=== PATIENT | female | born 1970 | race Caucasian/White ===

== ENCOUNTER 2019-07-19 02:40 | Emergency (ER) | payer OTHER ==
[~2019-07-19] VITALS: Ht 154.9 cm; Wt 88.0 kg
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
[2019-07-19] MEDS ORDERED: PRED20TA PO (02:52)
[2019-07-19] MEDS ORDERED: ALBU2.5V14 NEB (03:00)
[2019-07-19 03:06] VITALS: BP 153/76
[2019-07-19] MEDS: DEXAMETHASONE 4 MG TABLET PO ONE (03:27)
== END 2019-07-19 03:33 | disposition home or self-care (01) ==
LOC: ER 02:40
DX: J70.5 Respiratory conditions due to smoke inhalation (principal); J45.909 Unspecified asthma, uncomplicated; I10 Essential (primary) hypertension
CPT/HCPCS: 99283; J8540